=== PATIENT | male | born 1980 | race Caucasian/White ===

== ENCOUNTER 2017-08-30 09:49 | Emergency (ER) | payer SELFPAY ==
[~2017-08-30] VITALS: Ht 180.3 cm; Wt 102.1 kg
[~2017-08-30 09:49] MED LIST: ALPR0.254 PO; ATOR10TA60 PO; LOSA25TA4 PO; METO25TA4 PO
--- NOTE | 2017-08-30 10:14 | PHYS DOC ---
Past Medical History Past Medical History: Anxiety Past Surgical History: Appendectomy, Other Additional Past Surgical Histo: hernia Alcohol Use: Heavy Drug Use: Marijuana Adult General Chief Complaint Chief Complaint: MULTIPLE COMPLAINTS HPI HPI Patient is a 37 year old male presents to the ED complaining of cough x 1 week. Describes the cough as productive. Quit smoking 3 months ago. History of asthma as a kid. Associated symptoms include subjective fever, sore throat and ear pain. Denies chest pain, shortness of breath, dizziness, weakness, headache , weakness, body aches or n/v. [] Review of Systems Review of Systems Constitutional: Complains of Subjective fever. Denies chills [] Eyes: Denies change in visual acuity, redness, or eye pain [] HENT: Complains of ear pain and sore throat. [] Respiratory: Complains of cough. Denies shortness of breath [] Cardiovascular: No additional information not addressed in HPI [] GI: Denies abdominal pain, nausea, vomiting, bloody stools or diarrhea [] : Denies dysuria or hematuria [] Musculoskeletal: Denies back pain or joint pain [] Integument: Denies rash or skin lesions [] Neurologic: Denies headache, focal weakness or sensory changes [] Endocrine: Denies polyuria or polydipsia [] All other systems were reviewed and found to be within normal limits, except as documented in this note. Current Medications Current Medications Current Medications Medications (Trade) Dose Ordered Sig/Daya Start Time Stop Time Status Last Admin Dose Admin Albuterol/ Ipratropium (Duoneb) 3 ml 1X ONCE 08/30/17 10:30 08/30/17 10:31 DC 08/30/17 10:31 3 ML Methylprednisolone Sodium Succinate (SOLU-Medrol 125MG VIAL) 125 mg 1X ONCE 08/30/17 10:30 08/30/17 10:31 DC 08/30/17 10:25 125 MG Allergies Allergies Allergies Coded Allergies Type Severity Reaction Last Updated Verified No Known Drug Allergies 12/05/14 No Physical Exam Physical Exam Constitutional: Well developed, well nourished, no acute distress, non-toxic appearance. [] HENT: Normocephalic, atraumatic, bilateral external ears normal, MILD PHARYNGEAL ERYTHEMA. oropharynx moist, no oral exudates, nose normal. [] Eyes: PERRLA, EOMI, conjunctiva normal, no discharge. [] Neck: Normal range of motion, no tenderness, supple, no stridor. [] Cardiovascular:Heart rate regular rhythm, no murmur [] Lungs & Thorax: Bilateral breath sounds bilaterally. MILD WHEEZING. [] Abdomen: Bowel sounds normal, soft, no tenderness, no masses, no pulsatile masses. [] Skin: Warm, dry, no erythema, no rash. [] Back: No tenderness, no CVA tenderness. [] Extremities: No tenderness, no cyanosis, no clubbing, ROM intact, no edema. [] Neurologic: Alert and oriented X 3, normal motor function, normal sensory function, no focal deficits noted. [] Psychologic: Affect normal, judgement normal, mood normal. [] Current Patient Data Vital Signs Vital Signs Date Time Temp Pulse Resp B/P (MAP) Pulse Ox O2 Delivery O2 Flow Rate FiO2 08/30/17 11:05 80 16 158/88 (111) 98 Room Air 08/30/17 10:09 99.3 99.3 EKG EKG [] Radiology/Procedures Radiology/Procedures []PROCEDURE: CHEST PA & LATERAL EXAM: Chest, 2 views. HISTORY: Cough and congestion. COMPARISON: 06/13/2017. FINDINGS: Frontal and lateral views of the chest are obtained. There is no infiltrate, effusion or pneumothorax. The heart is normal in size. IMPRESSION: No acute pulmonary finding. Course & Med Decision Making Course & Med Decision Making Pertinent Labs and Imaging studies reviewed. (See chart for details) []Patient improved after breathing treatment. Vitals stable, no acute distress. Patient well-appearing. States he is feeling much better. Will treat with azithromycin, steroids and pro-air. Discussed follow-up with PCP early next week. Discussed reasons to return to the ED. Patient understands and agrees with plan. Dragon Disclaimer Dragon Disclaimer This electronic medical record was generated, in whole or in part, using a voice recognition dictation system. Departure Departure Impression: Primary Impression: Acute bronchitis Disposition: 01 HOME, SELF-CARE Condition: IMPROVED Referrals: UNKNOWN PCP NAME (PCP) QUINN PHAN MD Patient Instructions: Acute Bronchitis Scripts Albuterol Sulfate (PROAIR HFA INHALER) 8.5 Gm Hfa.aer.ad 1 PUFF INH PRN Q6HRS Y for SHORTNESS OF BREATH, #1 INHALER 0 Refills Prov: YAJAIRA TRUONG 08/30/17 Prednisone (PREDNISONE) 20 Mg Tablet 2 TAB PO DAILY, #10 TAB Prov: YAJAIRA TRUONG 08/30/17 Azithromycin (AZITHROMYCIN PACKET) 1 Gm Packet 1 PACKET PO ONCE, #1 PACKET Prov: YAJAIRA TRUONG 08/30/17 YAJAIRA TRUONG Aug 30, 2017 10:14
--- NOTE | 2017-08-30 10:25 | RAD ---
EXAM: Chest, 2 views. HISTORY: Cough and congestion. COMPARISON: 06/13/2017. FINDINGS: Frontal and lateral views of the chest are obtained. There is no infiltrate, effusion or pneumothorax. The heart is normal in size. IMPRESSION: No acute pulmonary finding.
[2017-08-30] MEDS ORDERED: methylPREDNISolone SOD SUCC PF 125 MG/2 ML VIAL. IM ONE (10:30)
[2017-08-30] MEDS ORDERED: IPRATRPIUM/ALBUTEROL 0.5/2.5MG 3 ML NEBU. NEB ONE (10:30)
[2017-08-30] MEDS ORDERED: AZIT1PAC9 PO (10:48)
[2017-08-30] MEDS ORDERED: PROAIR HFA8.5 GM INH (10:48)
[2017-08-30] MEDS ORDERED: PRED20TA PO (10:48)
[2017-08-30 11:05] VITALS: BP 158/88
== END 2017-08-30 11:05 | disposition home or self-care (01) ==
LOC: ER 09:49
DX: J20.9 Acute bronchitis, unspecified (principal); H92.03 Otalgia, bilateral; J45.909 Unspecified asthma, uncomplicated; F41.9 Anxiety disorder, unspecified; F12.10 Cannabis abuse, uncomplicated; F10.10 Alcohol abuse, uncomplicated; Z87.891 Personal history of nicotine dependence
CPT/HCPCS: 71020; 94640; 96372; 99284; J2930; J7620

== ENCOUNTER 2018-03-30 16:46 | Emergency (ER) | payer SELFPAY ==
[2018-03-30 17:04] LABS: ADD MAN DIFF? NO
[2018-03-30 17:05] LABS: AGAP ISTAT 16 mmol/L (6-14); BUN ISTAT 15 mg/dL (8-26); CHLORIDE ISTAT 104 mmol/L (98-110); CREATININE ISTAT 1.9 mg/dL (0.5-1.4); GLUCOSE ISTAT 66 mg/dL (70-99); HEMATOCRIT ISTAT 53 % (37-52); ION CA ISTAT 1.13 mmol/L (1.13-1.32); SODIUM ISTAT 140 mmol/L (135-145); TOT CO2 ISTAT 25 mmol/L (23-32)
[2018-03-30 17:06] LABS: BASO # 0.2 x10^3/uL (0.0-0.2); BASO % 1 % (0-3); EOS # 0.2 x10^3/uL (0.0-0.7); EOS % 1 % (0-3); HEMATOCRIT 51.4 % (39.0-53.0); HEMOGLOBIN 17.8 g/dL (13.0-17.5); LYMPH # 3.3 x10^3/uL (1.0-4.8); LYMPH % 20 % (24-48); MEAN CORPUSCULAR HEMOGLOBIN 30 pg (25-35); MEAN CORPUSCULAR HGB CONC 35 g/dL (31-37); MEAN CORPUSCULAR VOLUME 87 fL (79-100); MONO # 1.3 x10^3/uL (0.0-1.1); MONO % 8 % (0-9); NEUT # 11.4 x10^3uL (1.8-7.7); NEUT % 70 % (31-73); PLATELET COUNT 321 x10^3/uL (140-400); RED BLOOD COUNT 5.91 x10^6/uL (4.30-5.70); RED CELL DISTRIBUTION WIDTH 12.9 % (11.5-14.5); WHITE BLOOD COUNT 16.4 x10^3/uL (4.0-11.0)
[2018-03-30 17:13] LABS: ANION GAP 12 (6-14); BLOOD UREA NITROGEN 15 mg/dL (8-26); BUN/CREATININE RATIO 8 (6-20); CALCIUM 10.2 mg/dL (8.5-10.1); CARBON DIOXIDE 25 mmol/L (21-32); CHLORIDE 101 mmol/L (98-107); CREATININE 1.9 mg/dL (0.7-1.3); GFR 39.7; GLUCOSE 74 mg/dL (70-99); POTASSIUM 3.7 mmol/L (3.5-5.1); SODIUM 138 mmol/L (136-145)
[2018-03-30 17:15] LABS: PROTHROMBIN TIME PATIENT 12.4 SEC (11.7-14.0)
[2018-03-30 17:19] LABS: ALBUMIN 4.7 g/dL (3.4-5.0); ALBUMIN/GLOBULIN RATIO 1.1 (1.0-1.7); ALK PHOS 111 U/L (46-116); ALT (SGPT) 64 U/L (16-63); AST (SGOT) 34 U/L (15-37); TOTAL BILIRUBIN 0.4 mg/dL (0.2-1.0)
[2018-03-30 17:23] LABS: TROPONINI < 0.017 ng/mL (0.000-0.055)
[2018-03-30] MEDS: fentaNYL PF VIAL 100 MCG/2 ML VIAL IV (17:32)
[2018-03-30] MEDS: IV NORMAL SALINE 1000ML BAG 1,000 ML IV (17:58)
== END 2018-03-30 20:45 | disposition home or self-care (01) ==
LOC: ER 16:46
DX: R07.89 Other chest pain (principal); I10 Essential (primary) hypertension; F10.10 Alcohol abuse, uncomplicated
CPT/HCPCS: 36415; 71045; 80047; 80053; 84484; 85025; 85379; 85610; 93005; 96374; 96375; 99285-25; J2060; J3010; J7030

== ENCOUNTER 2018-04-05 21:10 | Emergency (ER) | payer SELFPAY | END 2018-04-05 23:15 | disposition home or self-care (01) | LOC: ER 21:10 | DX: S30.861A Insect bite (nonvenomous) of abdominal wall, initial encounter (principal); F10.10 Alcohol abuse, uncomplicated; F41.9 Anxiety disorder, unspecified; I10 Essential (primary) hypertension; W57.XXXA Bitten or stung by nonvenomous insect and other nonvenomous arthropods, initial encounter; Y93.89 Activity, other specified; Y92.89 Other specified places as the place of occurrence of the external cause; Y99.8 Other external cause status | CPT/HCPCS: 99283 ==